=== PATIENT | female | born 1980 | race Caucasian/White ===

== ENCOUNTER 2016-06-05 14:20 | Emergency (ER) | payer MEDICAID ==
[2016-06-05] MEDS ORDERED: PREDNISONE 20 MG TAB PO ONE (14:49)
[2016-06-05] MEDS ORDERED: CLINDAMYCIN 150 MG CAP PO ONE (14:49)
--- NOTE | 2016-06-05 14:57 | Emergency Department Record ---
History of Present Illness - General Chief complaint: ENT Stated complaint: sore throat returned/recent strep Time Seen by Provider: 06/05/16 14:38 Source: Patient Mode of Arrival: Ambulatory Limitations: No limitations - History of Present Illness Initial comments: 35 yo female presents with a return of sore throat. She was recently treated with Augmentin for Group A Strep. She has not completed the course and missed yesterday. She does not like the size of the Augmentin. No voice changes. No white patches or exudate. No fever. No gagging or vomiting. She does have symptoms of a yeast infection that is common with her with antibiotics. MD complaint: Sore throat Onset/Timin -: Days(s) Location: Throat Severity: Moderate Severity scale (1-10): 6 Quality: Burning Consistency: Constant Improves with: None Worsens with: Eating, Swallowing Context- Ear: Recent illness Associated Symptoms: Sore throat - Related Data Home Medications Medication Instructions Recorded Confirmed Last Taken Cetirizine HCl 10 mg PO QD tab 09/09/15 06/05/16 02/24/16 Previous Rx's Medication Instructions Recorded Clindamycin HCl [Cleocin HCl] 300 mg PO QID #28 capsule 06/05/16 Fluconazole [Diflucan] 150 mg PO ONCE #1 tab 06/05/16 Prednisone [Prednisone 20Mg] 20 mg PO BID #6 tab 06/05/16 Allergies Allergy/AdvReac Type Severity Reaction Status Date / Time No Known Drug Allergies Allergy Unverified 05/12/16 07:52 Travel Screening - Travel/Exposure Within Last 30 Days Have you traveled within the last 30 days?: No Review of Systems Constitutional: Denies: Chills, Fever, Malaise, Night sweats, Weakness Eyes: Denies: Eye discharge, Eye pain, Photophobia ENT: Reports: Throat pain. Denies: Congestion, Ear pain, Epistaxis Respiratory: Denies: Cough, Dyspnea, Hemoptysis, Stridor, Wheezes Cardiovascular: Denies: Chest pain, Palpitations, Syncope Endocrine: Denies: Fatigue Gastrointestinal: Denies: Abdominal pain, Diarrhea, Nausea, Vomiting Genitourinary: Reports: Discharge. Denies: Abnormal menses, Dysuria, Frequency Musculoskeletal: Denies: Arthralgia, Back pain, Myalgia Skin: Denies: Bruising, Change in color, Rash Neurological: Denies: Confusion, Headache Psychiatric: Denies: Anxiety Hematological/Lymphatic: Denies: Blood Clots, Easy bleeding, Easy bruising Past Medical History - SOCIAL HISTORY Smoking Status: Current every day smoker Alcohol Use: None Drug Use: None - RESPIRATORY Hx Respiratory Disorders: No - CARDIOVASCULAR Hx Cardio Disorders: No - NEURO Hx Neuro Disorders: No - GI Hx GI Disorders: Yes Hx Hepatitis/Jaundice: Yes (hepatitis C) Comment:: States meds are almost done and Hep. C is "undetectable" - Hx Genitourinary Disorders: No - ENDOCRINE Hx Endocrine Disorders: No - MUSCULOSKELETAL Hx Musculoskeletal Disorders: No - PSYCH Hx Psych Problems: Yes Hx Anxiety: Yes - HEMATOLOGY/ONCOLOGY Hx Hematology/Oncology Disorders: No Family Medical History Any Significant Family History?: No Physical Exam - General General Appearance: Alert, Oriented x3, Cooperative, No acute distress, Other ( Well appearing) Limitations: No limitations - Head Head exam: Normal inspection - Eye Eye exam: Normal appearance, PERRL. negative: Conjunctival injection, Periorbital swelling, Scleral icterus - ENT ENT exam: Mucous membranes moist, Normal external ear exam, TM's normal bilaterally. negative: Mucous membranes dry, Normal orophraynx Ear exam: Normal external inspection. negative: External canal tenderness Nasal Exam: Normal inspection. negative: Discharge, Sinus tenderness Mouth exam: Normal external inspection, Tongue normal. negative: Drooling, Muffled voice, Tongue elevation, Trismus Teeth exam: Normal inspection. negative: Dental caries Throat exam: Tonsillar erythema (mild), Tonsillomegaly (mild). negative: Tonsillar exudate, R peritonsillar mass, L peritonsillar mass - Neck Neck exam: Normal inspection, Full ROM. negative: Lymphadenopathy, Meningismus , Tenderness - Respiratory Respiratory exam: Normal lung sounds bilaterally. negative: Respiratory distress - Cardiovascular Cardiovascular Exam: Regular rate, Normal rhythm, Normal heart sounds - GI/Abdominal GI/Abdominal exam: Soft. negative: Tenderness - Rectal Rectal exam: Deferred - exam: Deferred - Extremities Extremities exam: Normal inspection, Full ROM, Normal capillary refill. negative: Tenderness - Back Back exam: Reports: Normal inspection, Full ROM. Denies: Muscle spasm, Rash noted, Tenderness - Neurological Neurological exam: Alert, Normal gait, Oriented X3 - Psychiatric Psychiatric exam: Normal affect, Normal mood. negative: Agitated, Anxious - Skin Skin exam: Dry, Intact, Normal color, Warm Course Vital Signs 06/05/16 14:24 Temperature 97.8 F Pulse Rate 66 Respiratory 20 Rate Blood Pressure 146/94 Pulse Ox 95 - Reevaluation(s) Reevaluation #1: Given her difficulties with the Augmentin the Rx was changed to Clindamycin with 3 more days of Prednisone 06/05/16 14:53 Disposition Disposition: Discharge Clinical Impression: Strep throat, Vaginal candidiasis Disposition: Home, Self-Care Condition: (1) Good Instructions: Strep Throat (ED), Vulvovaginal Candidiasis (ED) Additional Instructions: Call your doctor to be seen first of the week Return if worse Stay hydrated Tylenol or Motrin for pain Prescriptions: Clindamycin HCl [Cleocin HCl] 300 mg PO QID #28 capsule Fluconazole [Diflucan] 150 mg PO ONCE #1 tab Prednisone [Prednisone 20Mg] 20 mg PO BID #6 tab Forms: Patient Portal Access Time of Disposition: 14:57
== END 2016-06-05 15:03 | disposition home or self-care (01) ==
LOC: ER 14:20
DX: J02.0 Streptococcal pharyngitis (principal); B37.3 Candidiasis of vulva and vagina; F17.210 Nicotine dependence, cigarettes, uncomplicated
CPT/HCPCS: 99282; J7512

== ENCOUNTER 2016-11-15 01:00 | Emergency (ER) | payer MEDICAID, OTHER ==
[2016-11-15] MEDS ORDERED: PROPARACAINE HCL OPTH 15ML BTL OPTH ONE (01:18)
[2016-11-15] MEDS ORDERED: GENTAMICIN SULFATE 0.3% OPTH 5 ML BTL OPTH ONE (01:30)
[2016-11-15] MEDS ORDERED: AMOXICILLIN/POTASSIUM CLAV 875MG/125MG TABLET PO ONE (01:31)
--- NOTE | 2016-11-15 01:31 | Emergency Department Record ---
History of Present Illness - General Chief complaint: Eye Problem Stated complaint: EYE FEELS LIKE IT IS ON FIRE Time Seen by Provider: 11/15/16 01:18 Source: Patient Mode of Arrival: Ambulatory Limitations: No limitations - History of Present Illness Initial comments: 36 yo female presents to ED with a CC of "burning to the left eye" that began around 17:00 tonight. Patient denies trauma or injury to the eye, denies any chemical exposure or eye irritant. Patient report tearing and pain symptoms, mild blurred vision to the left eye. Patient denies health problems other than HTN. MD chief complaint: Eye pain, Eye redness Onset/Timin -: Hour(s) Onset Description: Gradual Location: Left eye Place: Home If Injury: None Eye Symptoms: Burning Severity: Moderate If Pain, Quality: Burning Consistency: Constant Associated Symptoms: None Treatments Prior to Arrival: None - Related Data Hx Tetanus Toxoid Vaccination: No Year of Tetanus Vaccination: unsure Previous Rx's Medication Instructions Recorded Amoxicillin/Potassium Clav 1 tab PO BID #19 tablet 11/15/16 [Augmentin 875Mg/125Mg] Allergies Allergy/AdvReac Type Severity Reaction Status Date / Time No Known Drug Allergies Allergy Unverified 11/04/16 13:38 Travel Screening - Travel/Exposure Within Last 30 Days Have you traveled within the last 30 days?: No Review of Systems Constitutional: Denies: Chills, Fever, Malaise, Night sweats Eyes: Reports: Eye pain, Photophobia. Denies: Eye discharge ENT: Denies: Congestion, Ear pain, Epistaxis Respiratory: Denies: Cough, Dyspnea Cardiovascular: Denies: Chest pain, Dyspnea on exertion Endocrine: Denies: Fatigue, Heat or cold intolerance Gastrointestinal: Denies: Abdominal pain, Nausea, Vomiting Genitourinary: Denies: Dysuria, Frequency, Hematuria, Incontinence Musculoskeletal: Denies: Arthralgia, Back pain, Gout, Joint swelling Skin: Denies: Bruising, Change in color Neurological: Denies: Abnormal gait, Confusion, Headache, Seizure Psychiatric: Denies: Anxiety Hematological/Lymphatic: Denies: Anemia, Blood Clots Past Medical History - SOCIAL HISTORY Smoking Status: Heavy tobacco smoker (>10/day) Alcohol Use: None Drug Use: None - RESPIRATORY Hx Respiratory Disorders: No - CARDIOVASCULAR Hx Cardio Disorders: Yes Hx Hypertension: Yes - NEURO Hx Neuro Disorders: No - GI Hx GI Disorders: Yes Hx Hepatitis/Jaundice: Yes (hepatitis C) Comment:: States meds are almost done and Hep. C is "undetectable" - Hx Genitourinary Disorders: No - ENDOCRINE Hx Endocrine Disorders: No - MUSCULOSKELETAL Hx Musculoskeletal Disorders: No - PSYCH Hx Psych Problems: Yes Hx Anxiety: Yes - HEMATOLOGY/ONCOLOGY Hx Hematology/Oncology Disorders: No Family Medical History Any Significant Family History?: No Family Hx Comment (NOT TO BE USED IN PLACE OF ITEMS BELOW): Denies Physical Exam - General General Appearance: Alert, Oriented x3, Cooperative, Moderate distress Limitations: No limitations - Head Head exam: Atraumatic, Normocephalic, Normal inspection Head exam detail: negative: Abrasion, Contusion, Hollis's sign, General tenderness, Hematoma, Laceration - Eye Eye exam: Conjunctival injection, Periorbital tenderness. negative: Periorbital swelling, Scleral icterus - ENT Ear exam: negative: Auricular hematoma, Auricular trauma Nasal Exam: negative: Active bleeding, Discharge, Dried blood, Foreign body Mouth exam: negative: Drooling, Laceration, Muffled voice, Tongue elevation - Neck Neck exam: Normal inspection. negative: Meningismus, Tenderness - Respiratory Respiratory exam: Normal lung sounds bilaterally. negative: Rales, Respiratory distress, Rhonchi, Stridor - Cardiovascular Cardiovascular Exam: Regular rate, Normal rhythm, Normal heart sounds - GI/Abdominal GI/Abdominal exam: Soft. negative: Rebound, Rigid, Tenderness - Rectal Rectal exam: Deferred - exam: Deferred - Extremities Extremities exam: Normal inspection. negative: Calf tenderness, Pedal edema, Tenderness - Back Back exam: Denies: CVA tenderness (R), CVA tenderness (L) - Neurological Neurological exam: Alert, Normal gait, Oriented X3 - Psychiatric Psychiatric exam: Normal affect, Normal mood - Skin Skin exam: Normal color. negative: Abrasion Type of lesion: negative: abrasion Course - Reevaluation(s) Reevaluation #1: 11/15/16 01:36 On examination, patient's symptoms are greatly improved following alcaine administration. Wood's lamp examination does not demonstrate any corneal abrasion, negative Shawn's sign, no FB on upper or lower lid eversion, and pH is 7 on examination. Patient does reports mild pain with palpation to the infra -orbital region, ? paula-orbital cellulitis and conjunctivitis? VA 20/20 in the affected eye as well. Will treat for both with instructions for follow-up with her PCP in 1-3 days as directed. Disposition Disposition: Discharge Clinical Impression: Periorbital cellulitis of left eye Conjunctivitis Qualifiers: Conjunctivitis type: acute Acute conjunctivitis type: unspecified Laterality: left Qualified Code(s): H10.32 - Unspecified acute conjunctivitis, left eye Disposition: Home, Self-Care Condition: (2) Stable Instructions: Conjunctivitis (ED) Additional Instructions: return to ED if your symptoms worsen or if you have any concerns. Gentamycin and Augmentin as directed. Follow-up with your Family Doctor in 1-3 days as directed. Prescriptions: Amoxicillin/Potassium Clav [Augmentin 875Mg/125Mg] 1 tab PO BID #19 tablet Forms: Patient Portal Access Time of Disposition: 01:30
== END 2016-11-15 02:11 | disposition home or self-care (01) ==
LOC: ER 01:00
DX: L03.213 Periorbital cellulitis (principal); H10.32 Unspecified acute conjunctivitis, left eye
CPT/HCPCS: 99282

== ENCOUNTER 2016-11-20 19:02 | Emergency (ER) | payer OTHER, MEDICAID ==
--- NOTE | 2016-11-20 19:12 | Emergency Department Record ---
History of Present Illness - General Chief complaint: Abscess Stated complaint: ABSCESS ON LEFT THIGH Time Seen by Provider: 11/20/16 19:12 Source: Patient - History of Present Illness Initial comments: The patient was seen on Monday at [facility]gent [facility] 11-18[facility]16 for an abscess on her left thigh. The I and D hurt so much that she wouldn't let the P.A. finish draining it. She was placed on Bactrim, and has taken 5 pills as directed since then and instructed to return if the redness extends further beyond the drawn line. She returned today because it is red beyond the line further down the thigh only. Also, the dressing has been draining slowly small amounts of blood tinged fluid on its own. She was seen here 5 days ago for a problem with her eye which has since completely resolved. She has a history of abscesses over various parts of her body--breasts, arms, legs, in the past, but is uncertain if she has had MRSA. MD complaint: Abscess/boil Hx Tetanus Toxoid Vaccination: No Year of Tetanus Vaccination: unsure - Related Data Home Medications Medication Instructions Recorded Confirmed Last Taken Sulfamethoxazole/Trimethoprim 1 tab PO BID 11/20/16 11/20/16 11/20/16 [Sulfamethoxazole-Tmp Ds Tablet] Allergies Allergy/AdvReac Type Severity Reaction Status Date / Time No Known Drug Allergies Allergy Verified 11/20/16 19:10 Review of Systems Reviewed: No additional complaints except as noted below Constitutional: Reports: As per HPI. Denies: Chills, Fever, Malaise, Night sweats, Weakness, Weight change Eyes: Reports: As per HPI. Denies: Eye discharge, Eye pain, Photophobia, Vision change ENT: Reports: As per HPI. Denies: Congestion, Dental pain, Ear pain, Epistaxis , Hearing loss, Throat pain Respiratory: Reports: As per HPI. Denies: Cough, Dyspnea, Hemoptysis, Stridor, Wheezes Cardiovascular: Reports: As per HPI. Denies: Arrhythmia, Chest pain, Dyspnea on exertion, Edema, Murmurs, Orthopnea, Palpitations, Paroxysmal nocturnal dyspnea, Rheumatic Fever, Syncope Endocrine: Reports: As per HPI. Denies: Fatigue, Heat or cold intolerance, Polydipsia, Polyuria Gastrointestinal: Reports: As per HPI. Denies: Abdominal pain, Constipation, Diarrhea, Hematemesis, Hematochezia, Melena, Nausea, Vomiting Genitourinary: Reports: As per HPI. Denies: Abnormal menses, Discharge, Dyspareunia, Dysuria, Frequency, Hematuria, Incontinence, Retention, Urgency Musculoskeletal: Reports: As per HPI. Denies: Arthralgia, Back pain, Gout, Joint swelling, Myalgia, Neck pain Skin: Reports: As per HPI. Denies: Bruising, Change in color, Change in hair/ nails, Lesions, Pruritus, Rash Neurological: Reports: As per HPI. Denies: Abnormal gait, Confusion, Headache, Numbness, Paresthesias, Seizure, Tingling, Tremors, Vertigo, Weakness Psychiatric: Reports: As per HPI. Denies: Anxiety, Auditory hallucinations, Depression, Homicidal thoughts, Suicidal thoughts, Visual hallucinations Hematological/Lymphatic: Reports: As per HPI. Denies: Anemia, Blood Clots, Easy bleeding, Easy bruising, Swollen glands Past Medical History - SOCIAL HISTORY Smoking Status: Heavy tobacco smoker (>10/day) Drug Use: None - RESPIRATORY Hx Respiratory Disorders: No - CARDIOVASCULAR Hx Cardio Disorders: Yes Hx Hypertension: Yes - NEURO Hx Neuro Disorders: No - GI Hx GI Disorders: Yes Hx Hepatitis/Jaundice: Yes (hepatitis C) Comment:: States meds are almost done and Hep. C is "undetectable" - Hx Genitourinary Disorders: No - ENDOCRINE Hx Endocrine Disorders: No - MUSCULOSKELETAL Hx Musculoskeletal Disorders: No - PSYCH Hx Psych Problems: Yes Hx Anxiety: Yes - HEMATOLOGY/ONCOLOGY Hx Hematology/Oncology Disorders: No Family Medical History Family Hx Comment (NOT TO BE USED IN PLACE OF ITEMS BELOW): Denies Physical Exam - General General Appearance: Alert, Oriented x3, Cooperative, No acute distress, Other ( morbidly obese) - Head Head exam: Normal inspection - Eye Eye exam: Normal appearance, PERRL Pupils: Normal accommodation - ENT ENT exam: Normal exam, Mucous membranes moist, Normal external ear exam, Normal orophraynx, TM's normal bilaterally Ear exam: Normal external inspection. negative: External canal tenderness Nasal Exam: Normal inspection. negative: Discharge, Sinus tenderness Mouth exam: Normal external inspection, Tongue normal Teeth exam: Normal inspection. negative: Dental caries Throat exam: Normal inspection. negative: Tonsillar erythema, Tonsillar exudate - Neck Neck exam: Normal inspection, Full ROM. negative: Tenderness - Respiratory Respiratory exam: Normal lung sounds bilaterally. negative: Respiratory distress - Cardiovascular Cardiovascular Exam: Regular rate, Normal rhythm, Normal heart sounds - GI/Abdominal GI/Abdominal exam: Soft, Normal bowel sounds. negative: Tenderness - Rectal Rectal exam: Deferred - exam: Deferred - Extremities Extremities exam: Normal inspection, Full ROM, Normal capillary refill. negative: Tenderness Image of Full Body: 1 - draining tender abscess with erythema distally, not involving her groin - Back Back exam: Reports: Normal inspection, Full ROM. Denies: Muscle spasm, Rash noted, Tenderness - Neurological Neurological exam: Alert, Normal gait, Oriented X3, Reflexes normal - Psychiatric Psychiatric exam: Normal affect, Normal mood - Skin Skin exam: Dry, Intact, Normal color, Warm Course - Reevaluation(s) Reevaluation #1: Procedure: sterile technique, skin prepped, draped in sterile fashion; incisedw ith #11 blade with pyrulent dc; probed to break up loculations, patient tolerated well. 11/20/16 21:18 Medical Decision Making - Management Options MDM Management: No Additional Work-up Planned Disposition Disposition: Discharge Clinical Impression: Abscess of left thigh Disposition: Home, Self-Care Condition: (1) Good Instructions: Abscess Incision and Drainage (ED), Abscess (ED) Additional Instructions: Continue bactrim as before. Take norco 1 every 6 hours if needed for more severe pain. Tylenol or ibuprofen as directed if needed for mild to moderate pain. Warm soaks to thigh 3-4 times daily. No prolongued standing. Stay off feet as much as possible. Return if redness is spreading towards your heart or groin. Recheck with PCP next week as needed. Forms: Patient Portal Access
[2016-11-20] MEDS ORDERED: HYDROMORPHONE HCL 1 MG/ML CPJ IM ONE (19:35)
[2016-11-20] MEDS ORDERED: PROMETHAZINE HCL 25 MG/ML VIAL IM ONE (19:36)
[2016-11-20] MEDS ORDERED: CEFTRIAXONE 1 GRAM VIAL IM ONE (21:17)
[2016-11-20] MEDS ORDERED: HYDROCODONE/APAP 5/325MG TABLET PO ONE (21:18)
== END 2016-11-20 22:03 | disposition home or self-care (01) ==
LOC: ER 19:02
DX: L02.416 Cutaneous abscess of left lower limb (principal)
CPT/HCPCS: 10060 ×2; 99284 ×2; 96372; J1170; J2550

== ENCOUNTER 2016-12-24 20:19 | Emergency (ER) | payer OTHER, MEDICAID ==
[2016-12-24] MEDS ORDERED: SILVER SULFADIAZINE 25 GM CREAM TOP ONE (21:03)
[2016-12-24] MEDS ORDERED: HYDROCODONE/APAP 5/325MG TABLET PO ONE (21:03)
--- NOTE | 2016-12-24 21:06 | Emergency Department Record ---
History of Present Illness - General Chief complaint: Burn/Smoke Inhalation Stated complaint: LT HAND FINGER TIPS BURN Time Seen by Provider: 12/24/16 21:03 Source: Patient Mode of Arrival: Ambulatory Limitations: No limitations - History of Present Illness Initial comments: 36 yo female presents to ED for evaluation of a burn resulting from a hot container affecting her left index, middle, and ring finger tips. Patient reports that her injury occurred approximately 1 hour ago, denies other injury. Patient immediately placed the fingers in cold water for treatment. Patient denies other injury. Patient denies any blistering of skin, and denies numbness , tingling, or finger weakness. MD Complaint: Burn Onset/Timin -: Hour(s) Smoke Inhalation: None Location: Other Location - Extremities: Left: Hand Severity: Mild Severity scale (1-10): 7 Associated Symptoms: Denies other symptoms Treatment Prior to Arrival: Other Treatment Prior to Arrival Comment:: aloe and cold water - Related Data Previous Rx's Medication Instructions Recorded Cephalexin [Keflex] 500 mg PO QID #28 cap 12/20/16 Silver Sulfadiazine [Ssd] 50 gm TP BID #1 tube 12/24/16 Allergies Allergy/AdvReac Type Severity Reaction Status Date / Time No Known Drug Allergies Allergy Verified 12/24/16 20:31 Travel Screening - Travel/Exposure Within Last 30 Days Have you traveled within the last 30 days?: No - Travel/Exposure Within Last Year Have you traveled outside the [place] in the last year?: No - Additonal Travel Details Have you been exposed to anyone with a communicable illness?: No - Travel Symptoms Symptom Screening: None Review of Systems Constitutional: Denies: Chills, Fever, Malaise, Night sweats Eyes: Denies: Eye discharge, Eye pain ENT: Denies: Congestion, Ear pain, Epistaxis Respiratory: Denies: Cough, Dyspnea Cardiovascular: Denies: Chest pain, Dyspnea on exertion Endocrine: Denies: Fatigue, Heat or cold intolerance Gastrointestinal: Denies: Abdominal pain, Nausea, Vomiting Genitourinary: Denies: Incontinence, Retention Musculoskeletal: Denies: Arthralgia, Back pain, Gout, Joint swelling Skin: Reports: Other (burn to the index, middle, and ring fingers on examination.). Denies: Bruising, Change in color, Change in hair/nails Neurological: Denies: Abnormal gait, Confusion, Headache, Seizure Psychiatric: Denies: Anxiety Hematological/Lymphatic: Denies: Anemia, Blood Clots Past Medical History - SOCIAL HISTORY Smoking Status: Current every day smoker Alcohol Use: Rare Drug Use: None - RESPIRATORY Hx Respiratory Disorders: No - CARDIOVASCULAR Hx Cardio Disorders: Yes Hx Hypertension: Yes - NEURO Hx Neuro Disorders: No - GI Hx GI Disorders: Yes Hx Hepatitis/Jaundice: Yes (hepatitis C) Comment:: States meds are almost done and Hep. C is "undetectable" - Hx Genitourinary Disorders: No - ENDOCRINE Hx Endocrine Disorders: No - MUSCULOSKELETAL Hx Musculoskeletal Disorders: No - PSYCH Hx Psych Problems: Yes Hx Anxiety: Yes - HEMATOLOGY/ONCOLOGY Hx Hematology/Oncology Disorders: No Family Medical History Any Significant Family History?: No Family Hx Comment (NOT TO BE USED IN PLACE OF ITEMS BELOW): Denies Hx Heart Disease: Father, Brother/Sister Physical Exam - General General Appearance: Alert, Oriented x3, Cooperative, Moderate distress Limitations: No limitations - Head Head exam: Atraumatic, Normocephalic, Normal inspection Head exam detail: negative: Abrasion, Contusion, Hollis's sign, General tenderness, Hematoma, Laceration - Eye Eye exam: Normal appearance. negative: Conjunctival injection, Periorbital swelling, Periorbital tenderness, Scleral icterus - ENT Ear exam: negative: Auricular hematoma, Auricular trauma Nasal Exam: negative: Active bleeding, Discharge, Dried blood, Foreign body Mouth exam: negative: Drooling, Laceration, Muffled voice, Tongue elevation - Neck Neck exam: Normal inspection. negative: Meningismus, Tenderness - Respiratory Respiratory exam: Normal lung sounds bilaterally. negative: Rales, Respiratory distress, Rhonchi, Stridor - Cardiovascular Cardiovascular Exam: Regular rate, Normal rhythm, Normal heart sounds - GI/Abdominal GI/Abdominal exam: Soft. negative: Rebound, Rigid, Tenderness - Rectal Rectal exam: Deferred - exam: Deferred - Extremities Extremities exam: Normal inspection, Tenderness, Other (TTP to the finger tips of the left index, middle, and ring fingers on examination, no evidence for 2nd/ 3rd degree burn injury to the digits). negative: Calf tenderness, Pedal edema - Back Back exam: Denies: CVA tenderness (R), CVA tenderness (L) - Neurological Neurological exam: Alert, Normal gait, Oriented X3 - Psychiatric Psychiatric exam: Normal affect, Normal mood - Skin Skin exam: Normal color. negative: Abrasion Type of lesion: negative: abrasion Course Vital Signs 12/24/16 20:29 Temperature 98.3 F Pulse Rate [ 108 H Pulse Ox Probe] Respiratory 26 H Rate Blood Pressure 140/111 [Right Arm] Pulse Ox 95 - Reevaluation(s) Reevaluation #1: 12/24/16 21:10 Injury appears c/w superficial burn injury to the finger tips, will treat with Silvadene ointment and dressing changes twice daily and instructions to follow- up with her PCP in 3-5 days. patient appears stable for discharge at this time. Disposition Disposition: Discharge Clinical Impression: Superficial burn of multiple fingers of left hand excluding thumb Qualifiers: Encounter type: initial encounter Qualified Code(s): T23.132A - Burn of first degree of multiple left fingers (nail), not including thumb, initial encounter Disposition: Home, Self-Care Condition: (2) Stable Instructions: Superficial Burn (ED) Additional Instructions: Return to ED if your symptoms worsen or if you have any concerns. Sivadene cream as directed twice daily. Follow-up with you family doctor in 3-5 days as directed. Prescriptions: Silver Sulfadiazine [Ssd] 50 gm TP BID #1 tube Forms: Patient Portal Access Time of Disposition: 21:05 Quality - Quality Measures Quality Measures: N/A - Blood Pressure Screening Blood Pressure Classification: Hypertensive Reading Systolic Measurement: 140 Diastolic Measurement: 111 Screening for High Blood Pressure: < First Hypertensive BP, F/U Documented > [ [id number]] First Hypertensive Follow-up Interventions: Referral to alternative/primary care provider.
== END 2016-12-24 21:16 | disposition home or self-care (01) ==
LOC: ER 20:19
DX: T23.132A Burn of first degree of multiple left fingers (nail), not including thumb, initial encounter (principal); X19.XXXA Contact with other heat and hot substances, initial encounter
CPT/HCPCS: 99283

== ENCOUNTER 2017-02-12 23:00 | Emergency (ER) | payer MEDICAID, OTHER ==
[2017-02-12 23:39] LABS: URINE APPEARANCE CLEAR; URINE BILIRUBIN NEGATIVE (NEGATIVE); URINE BLOOD LARGE (NEGATIVE); URINE COLOR YELLOW; URINE GLUCOSE (UA) NEGATIVE (NEGATIVE); URINE KETONE NEGATIVE (NEGATIVE); URINE LEUKOCYTE ESTERASE SMALL (NEGATIVE); URINE NITRITE POSITIVE (NEGATIVE); URINE UROBILINOGEN 0.2 E.U./dL (0.20 - 1.00)
--- NOTE | 2017-02-12 23:42 | Emergency Department Record ---
History of Present Illness - General Chief Complaint: Back Pain/Injury Stated Complaint: BACK PAIN Time Seen by Provider: 02/12/17 23:32 Source: Patient Mode of Arrival: Ambulatory Limitations: No limitations - History of Present Illness Initial Comments: 36 yo female presents to ED with a CC of dysuria symptoms and left sided low back pain today. Patient denies fevers, chills, or burning with urination, but was concerned that she "may have a kidney stone or an infection". Patient reports pain with prolonged standing that improves with sitting. Patient denies specific injury to the back. Patient denies numbness over the groin region, urinary retention, lower extremity weakness, or history of IVDA. MD Complaint: Back pain Onset/Timin -: Days(s) Severity scale (1-10): 7 Quality: Sharp Consistency: Constant Improves With: Sitting upright Worsens With: Movement Context: Unknown Associated Symptoms: Denies other symptoms - Related Data Home Medications Medication Instructions Recorded Confirmed Last Taken Alprazolam [Xanax] 0.5 mg PO BID 02/12/17 02/12/17 Unknown Previous Rx's Medication Instructions Recorded Nitrofurantoin [place] [Macrobid] 100 mg PO BID #13 capsule 02/12/17 Allergies Allergy/AdvReac Type Severity Reaction Status Date / Time No Known Drug Allergies Allergy Verified 02/12/17 23:25 Travel Screening - Travel/Exposure Within Last 30 Days Have you traveled within the last 30 days?: No - Travel Symptoms Symptom Screening: None Review of Systems Constitutional: Denies: Chills, Fever, Malaise, Night sweats Eyes: Denies: Eye discharge, Eye pain ENT: Denies: Congestion, Ear pain, Epistaxis Respiratory: Denies: Cough, Dyspnea Cardiovascular: Denies: Chest pain, Dyspnea on exertion Endocrine: Denies: Fatigue, Heat or cold intolerance Gastrointestinal: Denies: Abdominal pain, Nausea, Vomiting Genitourinary: Reports: Dysuria. Denies: Frequency, Hematuria, Incontinence, Retention Musculoskeletal: Reports: Back pain. Denies: Arthralgia, Gout, Joint swelling Skin: Denies: Bruising, Change in color Neurological: Denies: Abnormal gait, Confusion, Headache, Seizure Psychiatric: Denies: Anxiety Hematological/Lymphatic: Denies: Anemia, Blood Clots Past Medical History - SOCIAL HISTORY Smoking Status: Current every day smoker - RESPIRATORY Hx Respiratory Disorders: No - CARDIOVASCULAR Hx Cardio Disorders: Yes Hx Hypertension: Yes - NEURO Hx Neuro Disorders: No - GI Hx GI Disorders: Yes Hx Hepatitis/Jaundice: Yes (hepatitis C) Comment:: States meds are almost done and Hep. C is "undetectable" - Hx Genitourinary Disorders: No - ENDOCRINE Hx Endocrine Disorders: No - MUSCULOSKELETAL Hx Musculoskeletal Disorders: No - PSYCH Hx Psych Problems: Yes Hx Anxiety: Yes - HEMATOLOGY/ONCOLOGY Hx Hematology/Oncology Disorders: No Family Medical History Any Significant Family History?: Yes Hx Heart Disease: Father, Brother/Sister Physical Exam - General General Appearance: Alert, Oriented x3, Cooperative, No acute distress Limitations: No limitations - Head Head exam: Atraumatic, Normocephalic, Normal inspection Head exam detail: negative: Abrasion, Contusion, Hollis's sign, General tenderness, Hematoma, Laceration - Eye Eye exam: Normal appearance. negative: Conjunctival injection, Periorbital swelling, Periorbital tenderness, Scleral icterus - ENT Ear exam: negative: Auricular hematoma, Auricular trauma Nasal Exam: negative: Active bleeding, Discharge, Dried blood, Foreign body Mouth exam: negative: Drooling, Laceration, Muffled voice, Tongue elevation - Neck Neck exam: Normal inspection. negative: Meningismus, Tenderness - Respiratory Respiratory exam: Normal lung sounds bilaterally. negative: Rales, Respiratory distress, Rhonchi, Stridor - Cardiovascular Cardiovascular Exam: Regular rate, Normal rhythm, Normal heart sounds - GI/Abdominal GI/Abdominal exam: Soft. negative: Rebound, Rigid, Tenderness - Rectal Rectal exam: Deferred - exam: Deferred - Extremities Extremities exam: Normal inspection. negative: Calf tenderness, Pedal edema, Tenderness - Back Back exam: Reports: CVA tenderness (L) - Neurological Neurological exam: Alert, Normal gait, Oriented X3 - Psychiatric Psychiatric exam: Normal affect, Normal mood - Skin Skin exam: Normal color. negative: Abrasion Type of lesion: negative: abrasion Course Vital Signs 02/12/17 23:30 Temperature 98.6 F Pulse Rate [ 107 H Pulse Ox Probe] Respiratory 20 Rate Blood Pressure 144/78 [Left Arm] Pulse Ox 96 - Reevaluation(s) Reevaluation #1: 02/12/17 23:51 UA reviewed, 0-2 RBCs, 16-20 RBCs, 1+ bacteria are present. Results do not appears c/w infected kidney stone, and the patient is in no distress on examination. Findings appear c/w UTI vs. mild pyelonephritis. Will treat with Macrobid for probable infection. Repeat pulse 100. 02/12/17 23:56 Disposition Disposition: Discharge Clinical Impression: UTI (urinary tract infection) Qualifiers: Urinary tract infection type: acute cystitis Hematuria presence: without hematuria Qualified Code(s): N30.00 - Acute cystitis without hematuria Disposition: Home, Self-Care Condition: (2) Stable Instructions: Urinary Tract Infection in Women (ED) Additional Instructions: Return to ED if your symptoms worsen or if you have any concerns. Macrobid as directed. Follow-up with your family doctor in 3-5 days as directed. Prescriptions: Nitrofurantoin [place] [Macrobid] 100 mg PO BID #13 capsule Forms: Patient Portal Access Time of Disposition: 23:54 Quality - Quality Measures Quality Measures: N/A - Blood Pressure Screening Does Patient Have Any of the Following: No Blood Pressure Classification: Hypertensive Reading Systolic Measurement: 144 Diastolic Measurement: 78 Screening for High Blood Pressure: < First Hypertensive BP, F/U Documented > [ G8950] First Hypertensive Follow-up Interventions: Referral to alternative/primary care provider.
[2017-02-12 23:45] LABS: HCG,QUALITATIVE URINE NEGATIVE (NEGATIVE); URINE BACTERIA 1+; URINE EPITHELIAL CELLS 0 - 2 (FEW); URINE RBC 0 - 2 (NONE SEEN); URINE WBC 16 - 20 (0-2/hpf)
[2017-02-12] MEDS ORDERED: NITROFURANTOIN MONO 100 MG CAPSULE PO ONE (23:54)
== END 2017-02-13 00:10 | disposition home or self-care (01) ==
LOC: ER 23:00
DX: N30.00 Acute cystitis without hematuria (principal)
CPT/HCPCS: 81001; 81025; 99282

== ENCOUNTER 2017-02-13 10:22 | Emergency (ER) | payer MEDICAID, OTHER ==
[2017-02-13] MEDS ORDERED: 0.9 % SODIUM CHLORIDE 1,000 ML BAG IV ONE (11:14)
[2017-02-13 11:40] LABS: BASO % 0.4 % (0-6); EOS % 2.4 % (0-6); HEMATOCRIT 46.5 % (35.0-47.0); HEMOGLOBIN 15.1 gm/dl (11.6-16.0); LYMPH % 21.7 % (16-45); MEAN CELL VOLUME 92.1 fl (81-97); MEAN CORPUSCULAR HEMOGLOBIN 29.9 pg (27-33); MEAN CORPUSCULAR HGB CONC 32.5 g/dl (32-36); MEAN PLATELET VOLUME 10.8 fl (7.4-10.4); MONO % 7.5 % (0-9); PLATELET COUNT 201 K/uL (130-400); RED BLOOD COUNT 5.05 M/uL (3.80-5.40); RED CELL DISTRIBUTION WIDTH 13.8 % (11.5-14.5); WHITE BLOOD COUNT W/O DIFF 8.3 K/uL (4.2-12.2)
[2017-02-13 11:43] LABS: ALB/GLOB RATIO 1.2 (1.1-1.8); ALBUMIN 3.8 gm/dL (3.5-5.0); ALKALINE PHOSPHATASE 47 U/L (38-126); ALT/SGPT 55 U/L (9-52); ANION GAP 5.9 (7-16); AST/SGOT 25 U/L (14-36); BILIRUBIN,TOTAL 0.54 mg/dL (0.2-1.3); BLOOD UREA NITROGEN 8 mg/dL (7-17); CARBON DIOXIDE 32.1 mmol/L (22-30); CREATININE 0.6 mg/dL (0.52-1.04); EST GLOMERULAR FILTRATION RATE > 60 ml/min; GLUCOSE,RANDOM 133 mg/dL (70-110); TOTAL PROTEIN 7.1 gm/dL (6.3-8.2)
[2017-02-13] MEDS ORDERED: KETOROLAC 30 MG/ML VIAL IVP ONE (12:09)
[2017-02-13 14:37] LABS: URINE BILIRUBIN NEGATIVE (NEGATIVE); URINE BLOOD MODERATE (NEGATIVE); URINE COLOR YELLOW; URINE GLUCOSE (UA) NEGATIVE (NEGATIVE); URINE KETONE NEGATIVE (NEGATIVE); URINE LEUKOCYTE ESTERASE MODERATE (NEGATIVE); URINE NITRITE NEGATIVE (NEGATIVE); URINE PROTEIN TRACE (NEGATIVE); URINE UROBILINOGEN 0.2 E.U./dL (0.20 - 1.00)
[2017-02-13 14:45] LABS: URINE APPEARANCE CLOUDY
[2017-02-13 14:46] LABS: URINE WBC >50 (0-2/hpf)
[2017-02-13 14:47] LABS: URINE BACTERIA 2+
--- NOTE | 2017-02-13 14:51 | Emergency Department Record ---
History of Present Illness - General Chief Complaint: Headache Migraine Stated Complaint: CHAN Time Seen by Provider: 02/13/17 11:04 Source: Patient Mode of Arrival: Ambulatory Limitations: No limitations - History of Present Illness Initial Comments: pt states she has a headache and difficulty focusing and difficulty walking for 2 weeks and was incontinent in the night. she had 4 teeth pulled 3 days ago. she was here last night and was dxd w uti. she has not picked up her abx yet MD Complaint: Headache -: Unknown Onset Description: Gradual Location: Frontal Severity: Severe Severity scale (1-10): 10 Quality: Aching Consistency: Constant Improves With: Nothing Worsens With: None Associated Symptoms: Other Treatments Prior to Arrival: Ibuprofen Treatment Prior to Arrival Comment:: Motrin this morning at 9:30 - Symptoms of Stroke Symptoms of stroke: Dizziness, Unsteady When Walking - Related Data Previous Rx's Medication Instructions Recorded Nitrofurantoin [place] [Macrobid] 100 mg PO BID #13 capsule 02/12/17 Allergies Allergy/AdvReac Type Severity Reaction Status Date / Time No Known Drug Allergies Allergy Verified 02/13/17 10:31 Travel Screening - Travel/Exposure Within Last 30 Days Have you traveled within the last 30 days?: No Review of Systems Reviewed: No additional complaints except as noted below Constitutional: Reports: As per HPI. Denies: Chills, Fever, Malaise, Night sweats, Weakness, Weight change Eyes: Reports: As per HPI. Denies: Eye discharge, Eye pain, Photophobia, Vision change ENT: Reports: As per HPI. Denies: Congestion, Dental pain, Ear pain, Epistaxis , Hearing loss, Throat pain Respiratory: Reports: As per HPI. Denies: Cough, Dyspnea, Hemoptysis, Stridor, Wheezes Cardiovascular: Reports: As per HPI. Denies: Arrhythmia, Chest pain, Dyspnea on exertion, Edema, Murmurs, Orthopnea, Palpitations, Paroxysmal nocturnal dyspnea, Rheumatic Fever, Syncope Endocrine: Reports: As per HPI. Denies: Fatigue, Heat or cold intolerance, Polydipsia, Polyuria Gastrointestinal: Reports: As per HPI. Denies: Abdominal pain, Constipation, Diarrhea, Hematemesis, Hematochezia, Melena, Nausea, Vomiting Genitourinary: Reports: As per HPI. Denies: Abnormal menses, Discharge, Dyspareunia, Dysuria, Frequency, Hematuria, Incontinence, Retention, Urgency Musculoskeletal: Reports: As per HPI. Denies: Arthralgia, Back pain, Gout, Joint swelling, Myalgia, Neck pain Skin: Reports: As per HPI. Denies: Bruising, Change in color, Change in hair/ nails, Lesions, Pruritus, Rash Neurological: Reports: As per HPI. Denies: Abnormal gait, Confusion, Headache, Numbness, Paresthesias, Seizure, Tingling, Tremors, Vertigo, Weakness Psychiatric: Reports: As per HPI. Denies: Anxiety, Auditory hallucinations, Depression, Homicidal thoughts, Suicidal thoughts, Visual hallucinations Hematological/Lymphatic: Reports: As per HPI. Denies: Anemia, Blood Clots, Easy bleeding, Easy bruising, Swollen glands Past Medical History - SOCIAL HISTORY Smoking Status: Current every day smoker Alcohol Use: Occasional Drug Use: None - RESPIRATORY Hx Respiratory Disorders: No - CARDIOVASCULAR Hx Cardio Disorders: Yes Hx Hypertension: Yes - NEURO Hx Neuro Disorders: No - GI Hx GI Disorders: Yes Hx Hepatitis/Jaundice: Yes (hepatitis C) Comment:: States meds are almost done and Hep. C is "undetectable" - Hx Genitourinary Disorders: No - ENDOCRINE Hx Endocrine Disorders: No - MUSCULOSKELETAL Hx Musculoskeletal Disorders: No - PSYCH Hx Psych Problems: Yes Hx Anxiety: Yes - HEMATOLOGY/ONCOLOGY Hx Hematology/Oncology Disorders: No Family Medical History Any Significant Family History?: Yes Hx Heart Disease: Father, Brother/Sister Physical Exam - General General Appearance: Alert, Oriented x3, Cooperative, Mild distress, Other ( sedated) - Head Head exam: Normal inspection - Eye Eye exam: Normal appearance, PERRL, EOMI Pupils: Normal accommodation - ENT ENT exam: Normal exam, Mucous membranes moist, Normal external ear exam, Normal orophraynx Ear exam: Normal external inspection. negative: External canal tenderness Nasal Exam: Normal inspection. negative: Discharge, Sinus tenderness Mouth exam: Normal external inspection, Tongue normal Teeth exam: Normal inspection. negative: Dental caries Throat exam: Normal inspection. negative: Tonsillar erythema, Tonsillar exudate - Neck Neck exam: Normal inspection, Full ROM. negative: Tenderness - Respiratory Respiratory exam: Normal lung sounds bilaterally. negative: Respiratory distress - Cardiovascular Cardiovascular Exam: Regular rate, Normal rhythm, Normal heart sounds - GI/Abdominal GI/Abdominal exam: Soft, Normal bowel sounds. negative: Tenderness - Rectal Rectal exam: Deferred - exam: Deferred - Extremities Extremities exam: Normal inspection, Full ROM, Normal capillary refill. negative: Tenderness - Back Back exam: Reports: Normal inspection, Full ROM. Denies: Muscle spasm, Rash noted, Tenderness - Neurological Neurological exam: Alert, CN II-XII intact, Normal gait, Oriented X3 - Psychiatric Psychiatric exam: Normal affect, Normal mood - Skin Skin exam: Dry, Intact, Normal color, Warm Course Vital Signs 02/13/17 02/13/17 02/13/17 10:26 12:05 13:26 Temperature 97.7 F Pulse Rate 101 H Pulse Rate [ 58 L 83 Pulse Ox Probe] Respiratory 18 16 18 Rate Blood Pressure 130/101 Blood Pressure 132/88 118/64 [Left Arm] Pulse Ox 95 97 94 L - Reevaluation(s) Reevaluation #1: 02/13/17 15:17 pt feels better. pt s sats would drop to 88 when sleeping on back Medical Decision Making - Lab Data Result diagrams: 02/13/17 11:24 02/13/17 11:24 Lab Results 02/13/17 02/13/17 Range/Units 11:24 11:24 WBC 8.3 (4.2-12.2) K/uL RBC 5.05 (3.80-5.40) M/uL Hgb 15.1 (11.6-16.0) gm/dl Hct 46.5 (35.0-47.0) % MCV 92.1 (81-97) fl MCH 29.9 (27-33) pg MCHC 32.5 (32-36) g/dl RDW 13.8 (11.5-14.5) % Plt Count 201 (130-400) K/uL MPV 10.8 H (7.4-10.4) fl Gran % 68.0 (47-80) % Lymphocytes % 21.7 (16-45) % Monocytes % 7.5 (0-9) % Eosinophils % 2.4 (0-6) % Basophils % 0.4 (0-6) % Sodium 141 (136-145) mmol/L Potassium 4.4 (3.5-5.1) mmol/L Chloride 103 (98-107) mmol/L Carbon Dioxide 32.1 H (22-30) mmol/L Anion Gap 5.9 L (7-16) BUN 8 (7-17) mg/dL Creatinine 0.6 (0.52-1.04) mg/dL Estimated GFR > 60 ml/min Random Glucose 133 H (70-110) mg/dL Calcium 8.9 (8.5-10.1) mg/dL Total Bilirubin 0.54 (0.2-1.3) mg/dL AST 25 (14-36) U/L ALT 55 H (9-52) U/L Alkaline Phosphatase 47 (38-126) U/L Total Protein 7.1 (6.3-8.2) gm/dL Albumin 3.8 (3.5-5.0) gm/dL Globulin 3.3 (1.4-4.8) gm/dL Albumin/Globulin Ratio 1.2 (1.1-1.8) Disposition Disposition: Discharge Clinical Impression: Dehydration UTI (urinary tract infection) Qualifiers: Urinary tract infection type: acute cystitis Hematuria presence: with hematuria Qualified Code(s): N30.01 - Acute cystitis with hematuria Sleep apnea Qualifiers: Sleep apnea type: unspecified type Qualified Code(s): G47.30 - Sleep apnea, unspecified Headache Qualifiers: Headache type: tension-type Headache chronicity pattern: acute headache Intractability: not intractable Qualified Code(s): G44.209 - Tension-type headache, unspecified, not intractable Disposition: Home, Self-Care Condition: (1) Good Instructions: Acute Headache (ED), Urinary Tract Infection in Women (ED), Dehydration (ED), Snoring (ED), Hypoxia (ED) Additional Instructions: have sleep studies done. follow up with family doctor. push fluids. rest. return sooner if worse. sleep elevated or on side Quality - Quality Measures Quality Measures: N/A - Blood Pressure Screening Does Patient Have Any of the Following: No Blood Pressure Classification: Hypertensive Reading Systolic Measurement: 130 Diastolic Measurement: 101 Screening for High Blood Pressure: < Pre-Hypertensive BP, F/U Documented > [ G8950] Pre-Hypertensive Follow-up Interventions: Follow-up with rescreen every year.
[2017-02-13] MEDS ORDERED: NITROFURANTOIN MONO 100 MG CAPSULE PO ONE (14:52)
[2017-02-13 14:56] LABS: BARBITURATE SCREEN URINE DETECTED; BENZODIAZEPINE SCREEN URINE DETECTED
[2017-02-13 14:57] LABS: AMPHETAMINE SCREEN URINE NOT DETECTED; COCAINE SCREEN URINE NOT DETECTED; METHADONE SCREEN URINE NOT DETECTED; METHAMPHETAMINE SCREEN NOT DETECTED; OPIATE SCREEN URINE NOT DETECTED; OXYCODONE SCREEN URINE NOT DETECTED; PHENCYCLIDINE SCREEN URINE NOT DETECTED; PROPOXYPHENE SCREEN URINE NOT DETECTED; THC SCREEN URINE NOT DETECTED; TRICYCLIC ANTIDEPRESSANT SCRN NOT DETECTED
[2017-02-13] MEDS ORDERED: HYDROCODONE/APAP 5/325MG TABLET PO ONE (15:20)
--- NOTE | 2017-02-13 22:11 | CT SCAN REPORT ---
EXAM: CT SCAN HEAD WO CONTRAST HISTORY: SLURRED SPEECH. FRONTAL HEADACHE. TECHNIQUE: Routine noncontrast CT examination of the head. COMPARISON: None. FINDINGS: The examination is slightly limited by increased image noise due to body habitus. The ventricles and subarachnoid spaces are normal in size. No convincing area of abnormally increased or decreased attenuation is noted throughout the brain substance. No abnormal extraaxial fluid collection is seen. No skull fracture is visualized. The visualized paranasal sinuses and mastoid air cells are clear with exception of minor mucosal thickening within the maxillary sinuses. The orbits, as visualized, are unremarkable. IMPRESSION: 1. THE EXAMINATION IS MILDLY LIMITED BY INCREASED IMAGE NOISE DUE TO BODY HABITUS. 2. NO CT EVIDENCE OF AN ACUTE INTRACRANIAL ABNORMALITY, NOR INTRACRANIAL MASS. 3. MINIMAL MUCOSAL THICKENING WITHIN THE MAXILLARY SINUSES. JOB NUMBER: [id number] MTDD
== END 2017-02-13 15:32 | disposition home or self-care (01) ==
LOC: ER 10:22
DX: E86.0 Dehydration (principal); N30.01 Acute cystitis with hematuria; G44.209 Tension-type headache, unspecified, not intractable; G47.30 Sleep apnea, unspecified
CPT/HCPCS: 99284 ×2; 96374; 85025; 80053; 81001; 81025; 80305; 70450; J1885; J7030

== ENCOUNTER 2017-03-04 19:45 | Emergency (ER) | payer OTHER ==
--- NOTE | 2017-03-04 20:10 | Emergency Department Record ---
History of Present Illness - General Chief Complaint: Numbness Stated Complaint: LEFT SIDE PAIN/NUMBNESS Time Seen by Provider: 03/04/17 20:00 Source: Patient Mode of Arrival: Ambulatory Limitations: No limitations - History of Present Illness Initial Comments: The patient is here due to noticing her L 3rd and 4th fingers were numb yesterday when she woke up. The numbness is ONLY to the fingers. She denies any weakness or injury to the fingers. Additionally there has been no weakness or numbness to her arms, legs, face or trunk. She also has had no CP, SOB, CHAN, visual changes, nausea, vomiting, or balance issues. The patient has had L upper arm pain for some time ever since she received a pain shot in that area 13 days ago. Onset/Timin -: Days(s) Location: Left arm, Other History of same: No Improves With: Rest Worsens With: None On Anticoagulants: No - Related Data Home Medications: Previous Rx's Medication Instructions Recorded Naproxen [Naprosyn] 500 mg PO BID #14 tablet. 03/04/17 Allergies/Adverse Reactions: Allergies Allergy/AdvReac Type Severity Reaction Status Date / Time No Known Drug Allergies Allergy Verified 02/13/17 10:31 Travel Screening - Travel/Exposure Within Last 30 Days Have you traveled within the last 30 days?: No - Travel Symptoms Symptom Screening: None Review of Systems Constitutional: Denies: Chills, Fever Eyes: Denies: Eye discharge ENT: Denies: Congestion Respiratory: Denies: Cough, Dyspnea Past Medical History - SOCIAL HISTORY Smoking Status: Current every day smoker - RESPIRATORY Hx Respiratory Disorders: No - CARDIOVASCULAR Hx Cardio Disorders: Yes Hx Hypertension: Yes - NEURO Hx Neuro Disorders: No - GI Hx GI Disorders: Yes Hx Hepatitis/Jaundice: Yes (hepatitis C) Comment:: States meds are almost done and Hep. C is "undetectable" - Hx Genitourinary Disorders: No - ENDOCRINE Hx Endocrine Disorders: No - MUSCULOSKELETAL Hx Musculoskeletal Disorders: No - PSYCH Hx Psych Problems: Yes Hx Anxiety: Yes - HEMATOLOGY/ONCOLOGY Hx Hematology/Oncology Disorders: No Family Medical History Any Significant Family History?: Yes Hx Heart Disease: Father, Brother/Sister Physical Exam - General General Appearance: Alert, Oriented x3, Cooperative, No acute distress - Head Head exam: Atraumatic, Normocephalic, Normal inspection - Eye Eye exam: Normal appearance, PERRL, EOMI - ENT ENT exam: Normal exam, Mucous membranes moist, Normal external ear exam, Normal orophraynx, TM's normal bilaterally Throat exam: Normal inspection. negative: Tonsillar erythema, Tonsillar exudate - Neck Neck exam: Normal inspection, Full ROM, Other (Neg for bruits.). negative: Tenderness - Respiratory Respiratory exam: Normal lung sounds bilaterally. negative: Respiratory distress - Cardiovascular Cardiovascular Exam: Regular rate, Normal rhythm, Normal heart sounds. negative : Diastolic murmur, Gallop, Irregular rhythm, Systolic murmur - GI/Abdominal GI/Abdominal exam: Soft, Normal bowel sounds. negative: Tenderness - Extremities Extremities exam: Normal inspection (There is no swelling, erythema, or edema appreciated to either arm, leg or hand.), Full ROM, Normal capillary refill, Tenderness (There is tenderness to the L upper humeral area laterally. There is evidence of a recent IM shot there but no swelling, erythema, or edema.), Other (The radial pulses are full and equal bilaterally. ). negative: Calf tenderness , Pedal edema - Neurological Neurological exam: Alert, Motor sensory deficit (The motor exam is 5/5 upper and lower extremities. The sensory exam does show subjective numbness ONLY to the L 3rd and 4th fingers. The L hand and arm are NVI.), Normal gait (Neg Drift and Rhomberg.), Oriented X3, Reflexes normal. negative: Abnormal gait, Altered Course Vital Signs 03/04/17 19:52 Temperature 97.8 F Pulse Rate 66 Respiratory 24 Rate Blood Pressure 147/94 Pulse Ox 96 - Reevaluation(s) Reevaluation #1: The patient is resting comfortably with no new complaints. She denies any Cp, SOB, COSTA, or back pain. The numbness to her L 3rd and 4th fingers has not changed. 03/04/17 22:00 Reevaluation #2: The patient is resting comfortably again with no new complaints. She again is still having the finger issues to the L hand. Her L arm is still mildly pain and that pain is still 100% reproducible. I did order some cardiac enzymes which were basically neg but the CK-MB was very mildly elevated but probably WNL 's when the total CPK was taken into account due to that being mildly elevated also. The Trop was neg and her EKG was very normal also. Due to the fact I could not explain the patient's symptoms and the fact she does have cardiac risk factors of HTN, obesity and tobacco use I did recommend hospital admission. I did explain to them that the reason I would be recommending this is to monitor her heart and recheck her cardiac enzymes. The patient is refusing this plan. I explained to her that by leaving she could go home and have an [place], become disabled and even . The patient understands and accepts the risks. She was told to return to the ER at ANY time if needed and for any new symptoms. 03/04/17 23:04 03/04/17 23:05 Medical Decision Making - Data Complexity MDM Data: Labs Ordered and/or Reviewed, X-Ray Ordered and/or Reviewed, EKG Ordered and/or Reviewed - Lab Data Result diagrams: 03/04/17 20:25 03/04/17 20:25 - EKG Data -: EKG Interpreted by Me EKG: No Acute Changes, Normal EKG, Unchanged From Previous - Radiology Data Radiology results: Report reviewed (Head CT: Neg L Humerus: Neg.) Disposition Disposition: Discharge Clinical Impression: Arm pain, left Disposition: Against Medical Advice Condition: (2) Stable Instructions: Paresthesia (ED), Arm Pain (ED) Additional Instructions: Please take the Naprosyn for pain. Please see your PCP for recheck on Monday. Return to the ER for any increased pain, any numbness, weakness or any chest pain or shortness of breath. Prescriptions: Naproxen [Naprosyn] 500 mg PO BID #14 tablet.dr Forms: Patient Portal Access Time of Disposition: 23:03 Quality - Quality Measures Quality Measures: N/A - Blood Pressure Screening View Details: Yes Does Patient Have Any of the Following: No Blood Pressure Classification: Hypertensive Reading Systolic Measurement: 147 Diastolic Measurement: 94 Screening for High Blood Pressure: < Pre-Hypertensive BP, F/U Documented > [ G8950] Pre-Hypertensive Follow-up Interventions: Referral to alternative/primary care provider.
[2017-03-04 20:51] LABS: BASO % 0.5 % (0-6); EOS % 4.1 % (0-6); GRAN % 59.7 % (47-80); HEMATOCRIT 44.5 % (35.0-47.0); HEMOGLOBIN 15.1 gm/dl (11.6-16.0); LYMPH % 28.9 % (16-45); MEAN CELL VOLUME 88.8 fl (81-97); MEAN CORPUSCULAR HEMOGLOBIN 30.1 pg (27-33); MEAN CORPUSCULAR HGB CONC 33.9 g/dl (32-36); MEAN PLATELET VOLUME 11.3 fl (7.4-10.4); MONO % 6.8 % (0-9); PLATELET COUNT 206 K/uL (130-400); RED BLOOD COUNT 5.01 M/uL (3.80-5.40); RED CELL DISTRIBUTION WIDTH 13.4 % (11.5-14.5); WHITE BLOOD COUNT W/O DIFF 7.8 K/uL (4.2-12.2)
[2017-03-04 21:04] LABS: ALB/GLOB RATIO 1.3 (1.1-1.8); ALBUMIN 3.8 g/dL (4.0-5.0); ALKALINE PHOSPHATASE 46 U/L (35-104); ALT/SGPT 76 U/L (<33); AST/SGOT 42 U/L (10.0-35.0); BLOOD UREA NITROGEN 5 mg/dL (6-20); CREATININE 0.4 mg/dL (0.5-0.9); EST GLOMERULAR FILTRATION RATE > 60 mL/min; GLUCOSE,RANDOM 144 mg/dL (74-109); TOTAL PROTEIN 6.7 g/dL (6.6-8.7)
[2017-03-04 21:05] LABS: BILIRUBIN,TOTAL < 0.20 mg/dL (0.2-1.0)
[2017-03-04] MEDS ORDERED: KETOROLAC 30 MG/ML VIAL IM ONE (21:32)
[2017-03-04 22:40] LABS: CKMB 5.1 ng/mL (<3.77)
[2017-03-04 22:44] LABS: TROPONIN I < 0.30 ng/mL (0.00-0.300)
--- NOTE | 2017-03-06 09:18 | CT SCAN REPORT ---
EXAM: CT OF THE BRAIN HISTORY: NUMBNESS AND TINGLING. TECHNIQUE: CT of the brain without contrast was obtained. Comparison: Prior CT of the brain from 02/13/17. FINDINGS: The globes are intact. The paranasal sinuses and mastoid air cells are unremarkable. No displaced or depressed skull fracture. No intra or extraaxial hemorrhage. CT is limited for evaluation of acute infarct. No CT evidence for large or territorial acute infarct. No mass or midline shift. IMPRESSION: NEGATIVE CT OF THE BRAIN EXAMINATION. JOB NUMBER: [id number] MTDD
--- NOTE | 2017-03-06 09:26 | RADIOLOGY REPORT ---
EXAM: LEFT HUMERUS HISTORY: PAIN. TECHNIQUE: Three views of the left humerus were obtained. Comparison: None. Encounter: Initial. FINDINGS: Negative for fracture or dislocation. The soft tissues are unremarkable. The joint spaces are preserved. IMPRESSION: NEGATIVE LEFT HUMERUS EXAMINATION. JOB NUMBER: [id number] MTDD
== END 2017-03-04 23:08 | disposition left against medical advice (07) ==
LOC: ER 19:45
DX: M79.622 Pain in left upper arm (principal); R20.0 Anesthesia of skin; I10 Essential (primary) hypertension; F17.210 Nicotine dependence, cigarettes, uncomplicated
CPT/HCPCS: 99284 ×2; 96372; 82550; 85025; 82553; 84484; 80053; 73060; 70450; 93005; 93010; J1885